=== PATIENT | female | born 1945 | race Caucasian/White ===

== ENCOUNTER 2017-06-29 09:39 | Observation (INO) | payer MEDICARE, OTHER ==
[2017-06-29] MEDS ORDERED: ONDANSETRON HCL INJ/PF 4 MG/2 ML SDV IV ONE (09:56)
[2017-06-29] MEDS ORDERED: NORMAL SALINE 1000 ML 1,000 ML IV ONE (09:56)
[2017-06-29] MEDS ORDERED: FENTANYL CITRATE INJ/PF 100 MCG/2 ML AMPUL IV ONE (09:57)
--- NOTE | 2017-06-29 10:01 | ER Document Report ---
ED Medical Screen (RME) - General Chief Complaint: Abdominal Pain Stated Complaint: ABDOMINAL PAIN Time Seen by Provider: 06/29/17 09:51 Notes: 72-year-old female patient with known diverticulosis, previously had significant calcium oxalate crystals in the urine, slow onset last night of left lower quadrant abdominal pain. Some nausea without vomiting. Pain is gotten progressively worse. Brief exam shows left lower quadrant to be exquisitely tender, right lower quadrant mid abdomen also tender and makes the pain in the left abdomen worse. I have greeted and performed a rapid initial assessment of this patient. A comprehensive ED assessment and evaluation of the patient, analysis of test results and completion of the medical decision making process will be conducted by additional ED providers. TRAVEL OUTSIDE OF THE [place] IN LAST 30 DAYS: No - Related Data Allergies/Adverse Reactions: codeine [Codeine] Adverse Reaction (Mild, Verified 06/29/17 09:50) upset stomach, pain stomach Home Medications: unable to finish. pt states that she cannot remember medications Past Medical History - Social History Chew tobacco use (# tins/day): No Frequency of alcohol use: None Drug Abuse: None - Past Medical History Cardiac Medical History: Reports: Hx Hypertension Denies: Hx Coronary Artery Disease, Hx Heart Attack Pulmonary Medical History: Reports: Hx Asthma Denies: Hx Bronchitis, Hx COPD, Hx Pneumonia Neurological Medical History: Denies: Hx Cerebrovascular Accident, Hx Seizures Renal/ Medical History: Denies: Hx Peritoneal Dialysis Musculoskeltal Medical History: Reports Hx Arthritis Past Surgical History: Reports: Hx Orthopedic Surgery - Left total knee replacement. Denies: Hx Hysterectomy, Hx Pacemaker - Immunizations Hx Diphtheria, Pertussis, Tetanus Vaccination: Yes Physical Exam - Vital signs Vitals: Temp Pulse Resp BP Pulse Ox 97.9 F 83 18 148/76 H 95 06/29/17 09:45 06/29/17 09:45 06/29/17 09:45 06/29/17 09:45 06/29/17 09:45 Course - Vital Signs Vital signs: Temp Pulse Resp BP Pulse Ox 97.9 F 83 18 148/76 H 95 06/29/17 09:45 06/29/17 09:45 06/29/17 09:45 06/29/17 09:45 06/29/17 09:45
--- NOTE | 2017-06-29 10:57 | ER Document Report ---
ED GI/ - General Chief Complaint: Abdominal Pain Stated Complaint: ABDOMINAL PAIN Time Seen by Provider: 06/29/17 09:51 Notes: Patient is having left lower quadrant and lower abdominal pain that began last night. She has never had this before. Pain has been gradually increasing since its onset. It is also moved to the center and right lower quadrant region , as well this morning. Has been nauseated but not vomited. Had one diarrhea stool this morning. No blood seen. No history of any gastrointestinal disorders such as colitis, diverticulitis, regional enteritis, etc. Has had her gallbladder removed. No other abdominal surgeries. Denies any UTI symptoms and no history of kidney stones. TRAVEL OUTSIDE OF THE [place] IN LAST 30 DAYS: No - Related Data Allergies/Adverse Reactions: codeine [Codeine] Adverse Reaction (Mild, Verified 06/29/17 09:50) upset stomach, pain stomach Home Medications: unable to finish. pt states that she cannot remember medications Past Medical History - Social History Smoking Status: Unknown if Ever Smoked Chew tobacco use (# tins/day): No Frequency of alcohol use: None Drug Abuse: None Family History: Reviewed & Not Pertinent Patient has suicidal ideation: No Patient has homicidal ideation: No - Past Medical History Cardiac Medical History: Reports: Hx Hypertension Pulmonary Medical History: Reports: Hx Asthma Neurological Medical History: Denies: Hx Cerebrovascular Accident, Hx Seizures Musculoskeltal Medical History: Reports Hx Arthritis Past Surgical History: Reports: Hx Orthopedic Surgery - Left total knee replacement. Denies: Hx Hysterectomy, Hx Pacemaker - Immunizations Hx Diphtheria, Pertussis, Tetanus Vaccination: Yes Review of Systems - Review of Systems Notes: REVIEW OF SYSTEMS: CONSTITUTIONAL : Denies fever. EENT: Denies eye, ear, nose or mouth or throat pain or other symptoms. CARDIOVASCULAR: Denies chest pain. RESPIRATORY: Denies cough, chest congestion, or shortness of breath. GASTROINTESTINAL: See HPI. GENITOURINARY: Denies difficulty or painful urinating, urinary frequency, blood in urine. MUSCULOSKELETAL: Denies back or neck pain. Denies joint pain or swelling. SKIN: Denies rash or skin lesions. NEUROLOGICAL: Denies LOC or altered mental status. Denies headache. Denies sensory loss or motor deficits. ALL OTHER SYSTEMS REVIEWED AND NEGATIVE. Physical Exam - Vital signs Vitals: Temp Pulse Resp BP Pulse Ox 97.9 F 83 18 148/76 H 95 06/29/17 09:45 06/29/17 09:45 06/29/17 09:45 06/29/17 09:45 06/29/17 09:45 Interpretation: Normal - Notes Notes: PHYSICAL EXAMINATION: GENERAL: Well-appearing, in no acute distress. HEAD: Atraumatic, normocephalic. EYES: Pupils equal round and reactive to light, extraocular movements intact. ENT: oropharynx clear without exudates. Moist mucous membranes. NECK: Normal range of motion, supple. LUNGS: Breath sounds clear and equal bilaterally. HEART: Regular rate and rhythm without murmurs. ABDOMEN: Very tender from the left lower quadrant across the midline inferiorly to the right lower quadrant. Guarding in all of that area to deep palpation. No masses felt. No bruits heard.. BACK: No tenderness throughout entire back. EXTREMITIES: Normal range of motion without pain. NEUROLOGICAL: Normal speech, normal gait. Normal sensory, motor, and reflex exams. Awake, alert, and oriented x3. Cranial nerves normal. PSYCH: Normal mood, normal affect. SKIN: Warm, dry, no rashes. Course - Re-evaluation Re-evalutation: 06/29/17 14:30 CT scan shows sigmoid diverticulitis without evidence of perforation or obstruction. Contacted hospitalist on-call who will admit the patient for IV antibiotics and bowel rest. - Vital Signs Vital signs: Temp Pulse Resp BP Pulse Ox 97.9 F 83 18 148/76 H 95 06/29/17 09:45 06/29/17 09:45 06/29/17 09:45 06/29/17 09:45 06/29/17 09:45 - Laboratory Result Diagrams: 06/29/17 10:50 06/29/17 10:50 Laboratory results interpreted by me: 06/29/17 06/29/17 10:15 10:50 WBC 13.5 H Absolute Neutrophils 9.2 H Urine Glucose (UA) 50 H Urine Blood SMALL H - Diagnostic Test Radiology reviewed: Image reviewed, Reports reviewed - CT scan shows sigmoid diverticulitis without evidence of perforation. Discharge - Discharge Clinical Impression: Sigmoid diverticulitis Condition: Stable Disposition: ADMITTED INPATIENT Admitting Provider: Hospitalist Unit Admitted: Medical Floor
[2017-06-29 11:03] LABS: APPEARANCE,URINE CLEAR; BILIRUBIN,URINE NEGATIVE (NEGATIVE); COLOR,URINE STRAW; GLUCOSE, URINE 50 mg/dL (NEGATIVE); KETONES,URINE NEGATIVE (NEGATIVE); LEUKOCYTE ESTERASE,URINE NEGATIVE (NEGATIVE); NITRITE,URINE NEGATIVE (NEGATIVE); PROTEIN,URINE NEGATIVE (NEGATIVE); URINE SPECIFIC GRAVITY 1.008; UROBILINOGEN,URINE NEGATIVE mg/dL (<2.0)
[2017-06-29 11:04] LABS: ABSOLUTE BASOPHILS # (AUTO) 0.2 10^3/uL (0.0-0.2); ABSOLUTE EOSINOPHILS # (AUTO) 0.5 10^3/uL (0.0-0.6); ABSOLUTE LYMPHOCYTES (AUTO) 2.4 10^3/uL (0.5-4.7); ABSOLUTE MONOCYTES (AUTO) 1.3 10^3/uL (0.1-1.4); ABSOLUTE NEUT (AUTO) 9.2 10^3/uL (1.7-8.2); BASOPHILS % (AUTO) 1.1 % (0-2); EOSINOPHILS % (AUTO) 3.8 % (0-6); HEMATOCRIT 43.4 % (36.0-47.0); HEMOGLOBIN 14.6 g/dL (12.0-15.5); LYMPHOCYTES % (AUTO) 17.7 % (13-45); MEAN CORPUSCULAR HEMOGLOBIN 28.3 pg (27.0-33.4); MEAN CORPUSCULAR HGB CONC 33.6 g/dL (32.0-36.0); MEAN CORPUSCULAR VOLUME 84 fl (80-97); MONOCYTES % (AUTO) 9.5 % (3-13); PLATELET COUNT 230 10^3/uL (150-450); RED BLOOD COUNT 5.16 10^6/uL (3.72-5.28); RED CELL DISTRIBUTION WIDTH 13.3 % (11.5-14.0); SEGMENTED NEUTROPHILS % (AUTO) 67.9 % (42-78); TOTAL CELLS COUNTED % (AUTO) 100 %; WHITE BLOOD COUNT 13.5 10^3/uL (4.0-10.5)
[2017-06-29 11:27] LABS: ALANINE AMINOTRANSFERASE 36 U/L (9-52); ALBUMIN 4.3 g/dL (3.5-5.0); ALKALINE PHOSPHATASE 86 U/L (38-126); ANION GAP 11 (5-19); ASPARTATE AMINO TRANSFERASE 24 U/L (14-36); BILIRUBIN,DIRECT 0.3 mg/dL (0.0-0.4); BILIRUBIN,TOTAL 0.7 mg/dL (0.2-1.3); BLOOD UREA NITROGEN 11 mg/dL (7-20); CALCIUM 9.4 mg/dL (8.4-10.2); CARBON DIOXIDE 24 mmol/L (22-30); CHLORIDE 107 mmol/L (98-107); GLUCOSE 110 mg/dL (75-110); LIPASE 66.9 U/L (23-300); POTASSIUM 4.5 mmol/L (3.6-5.0); SODIUM 142.2 mmol/L (137-145); TOTAL PROTEIN 7.7 g/dL (6.3-8.2)
--- NOTE | 2017-06-29 13:49 | RADIOLOGY REPORT (SQ) ---
EXAM DESCRIPTION: CT ABD/PELVIS WITH IV ORAL COMPLETED DATE/TIME: 06/29/2017 1:39 pm REASON FOR STUDY: LLQ pain,PMH diverticulosis, urine ana oxal seth COMPARISON: 09/19/2014 TECHNIQUE: CT scan of the abdomen and pelvis performed using helical scanning technique with dynamic intravenous contrast injection. No oral contrast. Images reviewed with lung, soft tissue, and bone windows. Reconstructed coronal and sagittal MPR images reviewed. Delayed images for evaluation of the urinary system also acquired. All images stored on PACS. All CT scanners at this facility use dose modulation, iterative reconstruction, and/or weight based d osing when appropriate to reduce radiation dose to as low as reasonably achievable (ALARA). [facility]: Dose Right [facility]: CareDose [facility]: Dose Right [facility]: Teradose 4D [facility]: Kagera CONTRAST TYPE AND DOSE: contrast/concentration: Isovue 370.00 mg/ml; Total Contrast Delivered: 90.0 ml; Total Saline Delivered: 70.1 ml RENAL FUNCTION: GFR > 60. RADIATION DOSE: CT Rad equipment meets quality standard of care and radiation dose reduction techniq ues were employed. CTDIvol: 14.2 - 18.7 mGy. DLP: 1744 mGy-cm.. LIMITATIONS: None. FINDINGS: LOWER CHEST: No significant findings. No nodules or infiltrates. LIVER: Normal size. No masses. No dilated ducts. SPLEEN: Normal size. No focal lesions. PANCREAS: No masses. No significant calcifications. No adjacent inflammation or peripancreatic fluid collections. Pancreatic duct not dilated. GALLBLADDER: Surgically absent. ADRENAL GLANDS: No significant masses or asymmetry. RIGHT KIDNEY AND URETER: No solid masses. No significant calcifications. No hydronephrosis or hyd roureter. LEFT KIDNEY AND URETER: No solid masses. No significant calcifications. No hydronephrosis or hydr oureter. AORTA AND VESSELS: No aneurysm. No dissection. Renal arteries, SMA, celiac without stenosis. RETROPERITONEUM: No retroperitoneal adenopathy, hemorrhage or masses. BOWEL AND PERITONEAL CAVITY: Acute inflammatory change involving the sigmoid colon in the setting of diverticula compatible with acute diverticulitis. Small and large bowel loops otherwise grossly norm al. No abscess or free air. APPENDIX: Normal. PELVIS: No mass. No free fluid. Normal bladder. ABDOMINAL WALL: No masses. No hernias. BONES: No significant or acute findings. OTHER: No other significant finding. IMPRESSION: ACUTE SIGMOID DIVERTICULITIS. NO ABSCESS OR FREE AIR TECHNICAL DOCUMENTATION: JOB ID: [id number] Quality ID # [id number]: Final reports with documentation of one or more dose reduction techniques (e.g., Au tomated exposure control, adjustment of the mA and/or kV according to patient size, use of iterative reconstruction technique) 2010 [employer]- All Rights Reserved Reading location - IP/workstation name: [email or web address]
[2017-06-29] MEDS ORDERED: FAMOTIDINE 20 MG TABLET PO ONE (14:07)
[2017-06-29] MEDS ORDERED: CEFTRIAXONE INJ 1000 MG VIAL IV ONE (14:25)
[2017-06-29] MEDS ORDERED: ONDANSETRON HCL INJ/PF 4 MG/2 ML SDV IV PRN (14:57)
[2017-06-29] MEDS ORDERED: MORPHINE SULFATE 10 MG/ML INJ IV PRN (15:14)
--- NOTE | 2017-06-29 15:16 | PDOC H&P ---
History of Present Illness Admission Date/PCP: 06/29/17 14:33 GABRIELLA RODRIGUES Patient complains of: Abdominal pain History of Present Illness: IVANIA HOWARD is a 72 year old female with a PMH of hypertension who presents with 12 hour history of left lower quadrant abdominal pain. States that it began suddenly. Denies associated fevers, chills, CP, SOB, nausea or vomiting. Able to tolerate POs. Pain is described as sharp and constant. Improved with pain medications that were given in the ED. Has never had this before. Work up in ED was remarkable for mild leukocytosis. CT AP showed left sided colonic diverticulitis. Patient will be admitted to hsopitalist service for observation. Past Medical History Cardiac Medical History: Reports: Hypertension Denies: Coronary Artery Disease, Myocardial Infarction Pulmonary Medical History: Reports: Asthma Denies: Bronchitis, Chronic Obstructive Pulmonary Disease (COPD), Pneumonia Neurological Medical History: Denies: Seizures Musculoskeltal Medical History: Reports: Arthritis Hematology: Denies: Anemia Past Surgical History Past Surgical History: Reports: Orthopedic Surgery - Left total knee replacement Denies: Hysterectomy, Pacemaker Social History Information Source: Patient Lives with: Family Smoking Status: Former Smoker Frequency of Alcohol Use: Social Hx Recreational Drug Use: No Family History Family History: Reviewed & Not Pertinent Parental Family History Reviewed: No Children Family History Reviewed: NA Sibling(s) Family History Reviewed.: NA Medication/Allergy Home Medications: Atenolol [Tenormin] 25 mg PO DAILY 06/29/17 Allergies/Adverse Reactions: ciprofloxacin Allergy (Verified 06/29/17 14:51) codeine [Codeine] Adverse Reaction (Mild, Verified 06/29/17 09:50) upset stomach, pain stomach Review of Systems All systems: reviewed and no additional remarkable complaints except as stated Physical Exam Vital Signs: Temp Pulse Resp BP Pulse Ox 97.8 F 82 18 140/72 H 94 06/29/17 13:52 06/29/17 13:52 06/29/17 13:52 06/29/17 13:52 06/29/17 13:52 General appearance: PRESENT: no acute distress, cooperative, mild distress - Secondary to abdominal pain, obese Head exam: PRESENT: atraumatic, normocephalic Eye exam: PRESENT: EOMI Mouth exam: PRESENT: moist Neck exam: PRESENT: full ROM Respiratory exam: PRESENT: clear to auscultation estuardo, unlabored. ABSENT: wheezes Cardiovascular exam: PRESENT: RRR. ABSENT: systolic murmur, tachycardia GI/Abdominal exam: PRESENT: normal bowel sounds, soft, tenderness - LLQ tenderess to mild palpation Extremities exam: PRESENT: +1 edema Neurological exam: PRESENT: alert, awake, CN II-XII grossly intact Psychiatric exam: PRESENT: appropriate affect Skin exam: PRESENT: dry, intact Results Laboratory Results: Labs- All tests 24 hr 06/29/17 06/29/17 06/29/17 10:15 10:50 10:50 WBC 13.5 H RBC 5.16 Hgb 14.6 Hct 43.4 MCV 84 MCH 28.3 MCHC 33.6 RDW 13.3 Plt Count 230 Seg Neutrophils % 67.9 Lymphocytes % 17.7 Monocytes % 9.5 Eosinophils % 3.8 Basophils % 1.1 Absolute Neutrophils 9.2 H Absolute Lymphocytes 2.4 Absolute Monocytes 1.3 Absolute Eosinophils 0.5 Absolute Basophils 0.2 Sodium 142.2 Potassium 4.5 Chloride 107 Carbon Dioxide 24 Anion Gap 11 BUN 11 Creatinine 0.74 Est GFR ( Amer) > 60 Est GFR (Non-Af Amer) > 60 Glucose 110 Calcium 9.4 Total Bilirubin 0.7 Direct Bilirubin 0.3 Neonat Total Bilirubin Not Reportable Neonat Direct Bilirubin Not Reportable Neonat Indirect Bili Not Reportable AST 24 ALT 36 Alkaline Phosphatase 86 Total Protein 7.7 Albumin 4.3 Lipase 66.9 Urine Color STRAW Urine Appearance CLEAR Urine pH 6.0 Ur Specific [place] 1.008 Urine Protein NEGATIVE Urine Glucose (UA) 50 H Urine Ketones NEGATIVE Urine Blood SMALL H Urine Nitrite NEGATIVE Urine Bilirubin NEGATIVE Urine Urobilinogen NEGATIVE Ur Leukocyte Esterase NEGATIVE Urine WBC (Auto) 1 Urine RBC (Auto) 0 Urine Mucus (Auto) RARE Urine Ascorbic Acid NEGATIVE Impressions: Abdomen/Pelvis CT 06/29/17 09:57 IMPRESSION: ACUTE SIGMOID DIVERTICULITIS. NO ABSCESS OR FREE AIR Assessment & Plan - Diagnosis (1) Sigmoid diverticulitis Is this a current diagnosis for this admission?: Yes Plan: Clinical and radiographic evidence of diverticulitis. No evidence of free area or abscess so this qualifies as an uncomplicated diverticulitis. Due to pain and age, will admit for observation. - Received IV Ceftriaxone * 1 dose in ER. Will start Augmentin 500mg/125mg TID for 10 days. - Blood cultures were obtained in the ER, will follow - NO urgent indication for surgical consultation at this point - Ordered PO Tylenol for mild pain, PO oxycodone for moderate pain, and IV morphine (all PRNs) for pain control - Ordered IV Zofran PRN N/V - Started on full liquid diet, OK to advance if tolerating - Likely dc to home on 06/30 with completion of antibiotic course - Will need follow up colonoscopy after full resolution of symptoms (2) HTN (hypertension) Qualifiers: Hypertension type: essential hypertension Qualified Code(s): I10 - Essential (primary) hypertension Is this a current diagnosis for this admission?: Yes Plan: Continue home Atenolol - Time Time Spent: 50 to 70 Minutes Critical Time spent with patient: Less than 15 minutes Anticipated discharge: Home Within: within 24 hours
[2017-06-29] MEDS ORDERED: ENOXAPARIN SODIUM INJ 40 MG/0.4 ML DISP.SYRIN SUBCUT ONE (17:00)
[2017-06-29] MEDS: OXYCODONE HCL IR 5 MG TABLET PO PRN (17:11)
[2017-06-29] MEDS: AMOXICILLIN TR/POT CLAVULANATE 500-125 MG TAB PO SCH (17:12)
[2017-06-30 04:41] LABS: HEMATOCRIT 40.4 % (36.0-47.0); HEMOGLOBIN 13.6 g/dL (12.0-15.5); MEAN CORPUSCULAR HEMOGLOBIN 28.5 pg (27.0-33.4); MEAN CORPUSCULAR HGB CONC 33.8 g/dL (32.0-36.0); MEAN CORPUSCULAR VOLUME 85 fl (80-97); PLATELET COUNT 201 10^3/uL (150-450); RED BLOOD COUNT 4.79 10^6/uL (3.72-5.28); RED CELL DISTRIBUTION WIDTH 13.7 % (11.5-14.0); WHITE BLOOD COUNT 11.4 10^3/uL (4.0-10.5)
[2017-06-30 05:06] LABS: ANION GAP 10 (5-19); BLOOD UREA NITROGEN 8 mg/dL (7-20); CALCIUM 9.1 mg/dL (8.4-10.2); CARBON DIOXIDE 23 mmol/L (22-30); CHLORIDE 109 mmol/L (98-107); GLUCOSE 112 mg/dL (75-110); SODIUM 141.6 mmol/L (137-145)
[2017-06-30] MEDS: OXYCODONE HCL IR 5 MG TABLET PO PRN (07:19)
[2017-06-30] MEDS: AMOXICILLIN TR/POT CLAVULANATE 500-125 MG TAB PO SCH (09:52)
[2017-06-30] MEDS ORDERED: ENOXAPARIN SODIUM INJ 40 MG/0.4 ML DISP.SYRIN SUBCUT SCH ×2 (10:00)
[2017-06-30] MEDS ORDERED: ATENOLOL 50 MG TABLET PO SCH (10:00)
[2017-06-30] MEDS ORDERED: (PENDING PHARMACY ID) (Atenolol [Tenormin] 25 MG) PO SCH (10:00)
[2017-06-30 11:03] VITALS: BP 137/64
--- NOTE | 2017-06-30 16:38 | PDOC DISCHARGE SUMMARY ---
General - Admit/Disc Date/PCP Admission Date/Primary Care Provider: 06/29/17 14:33 GABRIELLA RODRIGUES Discharge Date: 06/30/17 - Discharge Diagnosis (1) Sigmoid diverticulitis Is this a current diagnosis for this admission?: Yes Summary: Clinical and radiographic evidence of diverticulitis. No evidence of free area or abscess so this qualifies as an uncomplicated diverticulitis. Due to pain and age, will admit for observation. - Received IV Ceftriaxone * 1 dose in ER. Transitioned to Augmentin 500mg/125mg TID for 10 days. - Blood cultures NGTD - Pain better controlled, has pain medications at home - No dietary restrictions - Will need follow up colonoscopy after full resolution of symptoms (2) HTN (hypertension) Is this a current diagnosis for this admission?: Yes Summary: Stable - Additional Information Resuscitation Status: Full Code Discharge Diet: As Tolerated Discharge Activity: Activity As Tolerated Prescriptions: Amox Tr/Potassium Clavulanate [Augmentin "500" Tablet] 1 tab PO TID 9 Days #27 tablet Home Medications: Albuterol Sulfate [Proair HFA] 2 puff IN Q4HP PRN 06/29/17 Atenolol [Tenormin] 25 mg PO DAILY 06/29/17 Ergocalciferol (Vitamin D2) [Vitamin D2] 50,000 unit PO FR@1000 06/29/17 Loratadine [Claritin] 10 mg PO DAILY 06/29/17 Oxycodone HCl [Oxy-Ir 5 mg Tablet] 5 mg PO Q12HP PRN 06/29/17 Pantoprazole Sodium [Protonix] 40 mg PO DAILY 06/29/17 Amox Tr/Potassium Clavulanate [Augmentin "500" Tablet] 1 tab PO TID 9 Days #27 tablet 06/30/17 History of Present Illness History of Present Illness: IVANIA HOWARD is a 72 year old female with a PMH of hypertension who presents with 12 hour history of left lower quadrant abdominal pain. States that it began suddenly. Denies associated fevers, chills, CP, SOB, nausea or vomiting. Able to tolerate POs. Pain is described as sharp and constant. Improved with pain medications that were given in the ED. Has never had this before. Work up in ED was remarkable for mild leukocytosis. CT AP showed left sided colonic diverticulitis. Patient will be admitted to hospitalist service for observation. Physical Exam Vital Signs: Temp Pulse Resp BP Pulse Ox 98.6 F 75 18 137/64 H 92 06/30/17 11:01 06/30/17 11:01 06/30/17 11:01 06/30/17 11:01 06/30/17 11:01 Intake & Output 06/29/17 06/30/17 07/01/17 06:59 06:59 06:59 Intake Total 868 Balance 868 Weight 84.5 kg General appearance: PRESENT: no acute distress, cooperative, obese Mouth exam: PRESENT: moist Respiratory exam: PRESENT: unlabored. ABSENT: wheezes Cardiovascular exam: PRESENT: RRR GI/Abdominal exam: PRESENT: soft. ABSENT: tenderness Neurological exam: PRESENT: alert, awake, CN II-XII grossly intact Psychiatric exam: PRESENT: appropriate affect Results Laboratory Results: 06/30/17 03:54 06/30/17 03:54 06/30/17 06/30/17 03:54 03:54 WBC 11.4 H RBC 4.79 Hgb 13.6 Hct 40.4 MCV 85 MCH 28.5 MCHC 33.8 RDW 13.7 Plt Count 201 Sodium 141.6 Potassium 4.0 Chloride 109 H Carbon Dioxide 23 Anion Gap 10 BUN 8 Creatinine 0.73 Est GFR ( Amer) > 60 Est GFR (Non-Af Amer) > 60 Glucose 112 H Calcium 9.1 Impressions: Abdomen/Pelvis CT 06/29/17 09:57 IMPRESSION: ACUTE SIGMOID DIVERTICULITIS. NO ABSCESS OR FREE AIR Qualifiers - * PATIENT BEING DISCHARGED WITH ANY OF THE FOLLOWING DIAGNOSIS: No
== END 2017-06-30 11:00 | disposition home or self-care (01) ==
LOC: ER 09:39 → INTOOBSV 14:33 → EH 14:33 → 4S 15:19
PROVIDERS: ADMIT Student in an Organized Health Care Education/Training Program; ATTEND Family Medicine
DX: K57.32 Diverticulitis of large intestine without perforation or abscess without bleeding (principal); I10 Essential (primary) hypertension; E66.9 Obesity, unspecified; Z79.899 Other long term (current) drug therapy; Z68.33 Body mass index [BMI] 33.0-33.9, adult; Z87.891 Personal history of nicotine dependence
CPT/HCPCS: 99285; 96361; 96374; 96375; 36415 ×2; 87040; 83690; 85025; 85027; 80048; 80053; 81001; 74177; G0378 ×2; A9270 ×6; J3010; J0696; J2405; J7030

== ENCOUNTER → 2018-02-26 | Outpatient (CLI) | payer MEDICARE, OTHER ==
--- NOTE | 2018-02-26 10:53 | WOMENS IMAGING REPORT ---
EXAM DESCRIPTION: BILAT SCREENING MAMMO W/CAD COMPLETED DATE/TIME: 02/26/2018 9:43 am REASON FOR STUDY: ROUTINE BILATERAL SCREENING;Z12.31 Z12.31 ENCNTR SCREEN MAMMOGRAM FOR MALIGNANT N EOPLASM OF BEAR COMPARISON: 2015 TECHNIQUE: Standard craniocaudal and mediolateral oblique views of each breast recorded using Xiama l acquisition. LIMITATIONS: None. FINDINGS: No masses, calcifications or architectural distortion. No areas of suspicion. Read with the assistance of CAD. .[facility] - R2 Cenova Version 1.3 .[facility] - R2 Cenova Version 1.3 .[facility] - R2 Cenova Version 2.4 .[facility] - R2 Cenova Version 2.4 .[facility] - R2 Typo Machine Operator Version 9.2 IMPRESSION: NORMAL MAMMOGRAM. BIRADS 1. BREAST DENSITY: b. There are scattered areas of fibroglandular density. BIRAD: 1 NEGATIVE RECOMMENDATION: ROUTINE SCREENING COMMENT: The patient has been notified of the results by letter per SA requirements. Additional no tification policies are in place for contacting patient with suspicious or incomplete findings. Quality ID #[id number]: The [employer] recommends an annual screening mammogram for women aged 40 years or over. This facility utilizes a reminder system to ensure that all patients receive reminder letters, and/or direct phone calls for appointments. This includes reminders for routine scr eening mammograms, diagnostic mammograms, or other Breast Imaging Interventions when appropriate. Th is patient will be placed in the appropriate reminder system. The [employer] (ACR) has developed recommendations for screening MRI of the breast s in certain patient populations, to be used in conjunction with mammography. Breast MRI surveillanc e may be appropriate for women with more than 20% lifetime risk of developing breast cancer as deter mined by genetic testing, significant family history of the disease, or history of mantle radiation f or Hodgkins Disease. ACR Practice Guidelines 2008. TECHNICAL DOCUMENTATION: FINDING NUMBER: (1) ASSESSMENT: (1) JOB ID: [id number] [employer]- All Rights Reserved Reading location - IP/workstation name: [email or web address]
== END ==
LOC: WI 09:11
PROVIDERS: ATTEND Internal Medicine
DX: Z12.31 Encounter for screening mammogram for malignant neoplasm of breast (principal)
CPT/HCPCS: 77067

== ENCOUNTER → 2019-09-11 | Outpatient (CLI) | payer MEDICARE, OTHER ==
--- NOTE | 2019-09-14 08:45 | WOMENS IMAGING REPORT ---
EXAM DESCRIPTION: 3D SCREENING MAMMO BILAT IMAGES COMPLETED DATE/TIME: 09/11/2019 11:27 am REASON FOR STUDY: Z12.31 ENCNTR SCREEN MAMMOGRAM FOR MALIGNANT NEOPLASM OF BREAST Z12.31 ENCNTR SCR EEN MAMMOGRAM FOR MALIGNANT NEOPLASM OF BEAR COMPARISON: 2016 and subsequent. EXAM PARAMETERS: Standard craniocaudal and mediolateral oblique views of each breast recorded using digital acquisition and breast tomosynthesis. Read with the assistance of CAD. .[facility] - [employer] Glass Bulb Machine Former Version 9.2 LIMITATIONS: None. FINDINGS: Findings present which are benign by mammographic criteria. No suspicious masses, calcific ations or architectural distortion. Pertinent benign findings: Scattered benign stable calcifications bilaterally. Benign mammographic findings may include one or more of the following: Smooth masses, popcorn/rim/coa rse calcifications, asymmetries, post-procedure changes, and lesions with long-standing stability. IMPRESSION: BENIGN MAMMOGRAPHIC FINDINGS. BIRADS 2 BREAST DENSITY: b. There are scattered areas of fibroglandular density. BIRAD: ASSESSMENT: 2 BENIGN FINDING(S) RECOMMENDATION: ROUTINE SCREENING COMMENT: The patient has been notified of the results by letter per SA requirements. Additional no tification policies are in place for contacting patient with suspicious or incomplete findings. Quality ID #[id number]: The [employer] recommends an annual screening mammogram for women aged 40 years or over. This facility utilizes a reminder system to ensure that all patients receive reminder letters, and/or direct phone calls for appointments. This includes reminders for routine scr eening mammograms, diagnostic mammograms, or other Breast Imaging Interventions when appropriate. Th is patient will be placed in the appropriate reminder system. TECHNICAL DOCUMENTATION: FINDING NUMBER: (1) ASSESSMENT: (1) JOB ID: [id number] 2010 [employer]- All Rights Reserved Reading location - IP/workstation name: [email or web address]
== END ==
LOC: WI 11:02
PROVIDERS: ATTEND Obstetrics & Gynecology Gynecology
DX: Z12.31 Encounter for screening mammogram for malignant neoplasm of breast (principal)
CPT/HCPCS: 77063; 77067

== ENCOUNTER → 2020-02-22 | Outpatient (CLI) | payer MEDICARE, OTHER ==
[~2020-02-22] MED LIST: DIAZEPAM 5 MG TABLET ONE
--- NOTE | 2020-02-23 14:03 | RADIOLOGY REPORT (SQ) ---
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 TECHNIQUE: Multiplanar imaging includes non-contrasted T1, T2, FLAIR, diffusion with ADC map and pos t gadolinium contrast sequences. Additional thin slice images with and without gadolinium contrast a cquired of the orbits. Images stored on PACS. CONTRAST TYPE AND DOSE: 15 mL Prohance. RENAL FUNCTION: Not indicated. ACR Type II contrast agent associated with few, if any, unconfounded cases of NSF LIMITATIONS: None. FINDINGS: ANATOMY: No anomalies. Normal vascular flow voids. Pituitary fossa normal. CSF SPACES: Atrophy induced prominence of ventricles and CSF spaces. CEREBRUM: High signal intensity lesions scattered through white matter on FLAIR imaging with distribu tion suggesting chronic micro-vascular ischemic changes. No hemorrhage. No edema, masses or mass ef fect. No enhancing lesions. POSTERIOR FOSSA: No signal alteration. No edema, masses, mass effect. Internal Auditory Canals, Cereb ello-pontine angles, mastoids normal. No enhancing lesions. DIFFUSION IMAGING: Negative for acute or sub-acute infarction. ORBITS: No masses. Globes normal. Extraocular muscles and optic nerves normal. Orbital fat clear. No inflammatory changes or enhancement. PARANASAL SINUSES: No fluid levels. Mucosa normal. OTHER: No other significant finding. IMPRESSION: Chronic ischemic changes. Normal orbits. TECHNICAL DOCUMENTATION: JOB ID: [id number] [employer]- All Rights Reserved Reading location - IP/workstation name: [email or web address]
== END ==
LOC: RAD 02-17 13:34
PROVIDERS: ATTEND Ophthalmology
DX: H47.292 Other optic atrophy, left eye (principal); H53.452 Other localized visual field defect, left eye
CPT/HCPCS: 82565; 70553; A9576; A9270